=== PATIENT | female | born 1950 | race Caucasian/White ===

== ENCOUNTER 2025-02-06 12:44 | Outpatient (OUT) | payer MEDICARE, SELFPAY ==
--- NOTE | 2025-02-06 12:53 | ECG_ITS ---
[facility] Test Date: 2025-02-06 Pat Name: NOLVIA ASH Department: Room: - Gender: Female Equity Director: : 1950 Requested By: AYO NUNEZ Order Number: [id number] Reading MD: INO VERDE M.D. Measurements Intervals [place] Rate: 68 P: IA: QRS: 9 QRSD: 81 T: 36 QT: 403 QTc: 430 Interpretive Statements ATRIAL FIBRILLATION ABNORMAL ECG No previous ECG available for comparison Electronically Signed On 02-06-2025 17:57:03 EDT by INO VERDE M.D.
--- NOTE | 2025-02-06 12:53 | XR_ITS ---
The [address] [address] Patient Name: NOLVIA ASH MRN: [id number] date: 1950 Sex: F Assigned Patient Location: [facility] Current Patient Location: [facility] Accession/Order Number: [id number] Exam Date: 02/06/2025 14:33 Report Date: 02/06/2025 14:34 At the request of: AYO NUNEZ MD Procedure: XR chest 2V XR chest 2V 02/06/2025 1:59 PM SIGNS AND SYMPTOMS: ^Preop exam ^N PROTOCOL: Frontal and lateral radiographs of the chest COMPARISON: None FINDINGS: The trachea is midline. The heart and mediastinal structures are within normal limits. There is a 1 cm density in the right lung base which is of uncertain etiology. Statistically this is most likely a calcified granuloma. Follow-up dedicated CT of the chest is recommended however. Degenerative changes are noted in the shoulders. Degenerative changes are noted in the thoracic spine with a slight dextro convex curvature. XR/XR chest 2V IMPRESSION: There is a 1 cm density in the right lung base which is of uncertain etiology. Statistically this is most likely a calcified granuloma. Follow-up dedicated CT of the chest is recommended however. Impression dictated by: Pacheco Madera M.D. 02/06/2025 2:34 PM Dictation Location: [place] [address] Electronically authenticated by: [id number] Y Date: 02/06/2025 14:34
--- NOTE | 2025-02-06 13:54 | PM.PRESUREVA ---
History of Present Illness History of Present Illness Chief complaint: bladder tumor Narrative: Mrs. Alyssa Patel presents to presurgical testing for scheduled cystoscopy and transurethral resection of bladder tumor\lesion. Mrs. Bronson reports that she had a recent cystoscopy due to hematuria and that Dr. Newell would like to look into her bladder with a light to remove the bladder tumor\lesion. She is scheduled for cystoscopy with TURBT with Dr. Newell on 02/15/2025 Review of Systems ROS Narrative REVIEW OF SYSTEMS: Negative except as stated in HPI, ten or more systems reviewed. Constitutional: No fever, chills, weakness ENT: No sore throat or epistaxis Cardiovascular: No edema, chest pain, palpitations, or activity intolerance she reports intermittent fluttering secondary to atrial fibrillation Respiratory: No shortness of breath, cough, or wheezing Musculoskeletal: Reports intermittent joint pain related to osteoarthritis denies swelling to joints Gastrointestinal: No abdominal pain, constipation, diarrhea, or vomiting Genitourinary: No dysuria she reports some hematuria\dark urine Neurological: No numbness, tingling, weakness, or headache Psychiatric: No mood changes PFSH PFSH Medical History (Updated 02/06/25 @ 13:51 by Kemi Gloria) Osteoarthritis ?M19.90 - Unspecified osteoarthritis, unspecified site (ICD-10) IBS (irritable bowel syndrome) ?K58.9 - Irritable bowel syndrome, unspecified (ICD-10) Hernia, umbilical ?K42.9 - Umbilical hernia without obstruction or gangrene (ICD-10) Uterine cancer ?C55 - Malignant neoplasm of uterus, part unspecified (ICD-10) Hyperlipidemia ?E78.5 - Hyperlipidemia, unspecified (ICD-10) Gross hematuria ?R31.0 - Gross hematuria (ICD-10) Diabetes ?E11.9 - Type 2 diabetes mellitus without complications (ICD-10) Depression ?F32.A - Depression, unspecified (ICD-10) Asthma ?J45.909 - Unspecified asthma, uncomplicated (ICD-10) Atrial fibrillation ?I48.91 - Unspecified atrial fibrillation (ICD-10) Surgical History (Updated 02/06/25 @ 13:31 by Kemi Gloria) History of colonoscopy ?Z98.890 - Other specified postprocedural states (ICD-10) History of tubal ligation ?Z98.51 - Tubal ligation status (ICD-10) History of partial hysterectomy ?Z90.711 - Acquired absence of uterus with remaining cervical stump (ICD-10) H/O partial thyroidectomy ?E89.0 - Postprocedural hypothyroidism (ICD-10) Family History (Updated 02/06/25 @ 13:23 by Kemi Gloria) Other Family history of DVT Family history of MS (multiple sclerosis) Family history of breast cancer Family history of colon cancer Family history of coronary artery disease Family history of diabetes mellitus Family history of heart disease Family history of hypertension Family history of myocardial infarction Family history of pulmonary embolism Family history of stroke Family history of thyroid cancer Family history of uterine cancer Social History (Updated 02/06/25 @ 13:19 by Kemi Gloria) Within the past year, how often did you have a drink containing alcohol: never Score interpretation: A score less than 3 is consistent with normal alcohol consumption. Smoking status: Never smoker Non-prescribed substance use: denies use Previous occupational history: retired Highest level of school completed/degree received: high school graduate Meds Home Medications and Allergies Home Medications ?Medication ?Instructions ?Recorded ?Confirmed ?Type albuterol sulfate 2.5 mg/3 mL 2.5 mg inhalation TID-QID PRN 02/06/25 02/06/25 History (0.083 %) solution for nebulization shortness of breath or wheezing albuterol sulfate 90 mcg/actuation 2 inh inhalation Q6H PRN shortness 02/06/25 02/06/25 History aerosol inhaler of breath or wheezing alendronate 70 mg tablet (Fosamax) 70 mg PO QWEEK 02/06/25 02/06/25 History apixaban 5 mg tablet (Eliquis) 5 mg PO BID 02/06/25 02/06/25 History atorvastatin 40 mg tablet (Lipitor) 40 mg PO BEDTIME 02/06/25 02/06/25 History calcium citrate 600 mg PO BEDTIME 02/06/25 02/06/25 History cholecalciferol (vitamin D3) 125 2,000 unit PO QDAY 02/06/25 02/06/25 History mcg (5,000 unit) tablet (Vitamin D3) cyanocobalamin (vitamin B-12) 250 250 mcg PO .evening 02/06/25 02/06/25 History mcg tablet (Vitamin B-12) fluoxetine 20 mg capsule (Prozac) 20 mg PO DAILY 02/06/25 02/06/25 History losartan 100 mg tablet (Cozaar) 100 mg PO DAILY 02/06/25 02/06/25 History magnesium 200 mg tablet 250 mg PO BEDTIME 02/06/25 02/06/25 History metformin 500 mg tablet 1,000 mg PO BID 02/06/25 02/06/25 History metoprolol succinate 25 mg 25 mg PO DAILY 02/06/25 02/06/25 History tablet,extended release 24 hr (Toprol XL) multivitamin (Daily Multi-Vitamin 1 tab PO DAILY 02/06/25 02/06/25 History tablet) simethicone 125 mg capsule 125 mg PO BID PRN abdominal 02/06/25 02/06/25 History distention sulfamethoxazole 800 1 tab PO BID 02/06/25 02/06/25 History mg-trimethoprim 160 mg tablet (Bactrim DS) zinc gluconate 50 mg tablet 50 mg PO .COMPLEX 02/06/25 02/06/25 History Allergies Allergy/AdvReac Type Severity Reaction Status Date / Time No Known Drug Allergies Allergy Verified 02/06/25 13:18 Exam Narrative Exam Narrative: Constitutional: Awake, alert, comfortable, well-appearing, nontoxic, interactive, vital signs as charted Head: Normocephalic, atraumatic Eyes: Conjunctiva and lids normal to inspection, pupils normal ENT: Tympanic membranes pearly ruelas, nonerythematous, noninjected, naris patent, posterior oropharynx clear, oral mucosa moist, edentulism Neck: Supple, normal appearance, normal range of motion, no meningeal signs, no lymphadenopathy Respiratory: No respiratory distress, breath sounds clear Cardiovascular: Heart rate at 70 bpm, irregularly irregular consistent with Atrial fib without murmur Abdomen: Nontender, normal bowel sounds, soft, no CVA tenderness Musculoskeletal: Antalgic gait ambulating with cane, no swelling or edema Skin: No rashes or induration, no lesions, only visible skin inspected Neuro: No neurological deficits, normal sensation Psychiatric: Oriented ?3, normal affect Assessment and Plan Assessment and Plan (1) Hematuria: (2) Bladder tumor: Plan She is scheduled for cystoscopy and TUBT with Dr. Newell on February 15, 2025
[2025-02-06 14:09] LABS: BUN Creatinine Ratio 18.5; Calcium 9.4 mg/dL (8.5-10.1); Carbon Dioxide 31.2 mmol/L (21.0-32.0); Chloride 104 mmol/L (98-107); Estimated GFR (African America 54 (>=60 mL/min/1.73m^2); Estimated GFR (Non-African Ame 44 (>=60 mL/min/1.73m^2); Glucose 119 mg/dL (74-106); Potassium 4.2 mmol/L (3.5-5.1); Sodium 143 mmol/L (136-145)
[2025-02-06 14:17] LABS: Basophils Percent Auto 0.6 % (0.2-2.0); Eosinophils Absolute Auto 0.1 10^3/uL (0.0-0.7); Hematocrit 39.2 % (36.0-48.0); Hemoglobin 11.9 g/dL (12.0-16.0); Immature Granulocytes Abs Auto 0.02 10^3/uL (0.00-0.03); Immature Granulocytes Pct Auto 0.3 % (0.0-0.5); Lymphocytes Absolute Auto 1.1 10^3/uL (1.2-3.8); Mean Corpuscular HGB Conc 30.4 g/dL (29.9-35.2); Mean Corpuscular Hemoglobin 26.7 pg (26.7-34.0); Mean Corpuscular Volume 88.1 fL (81.0-99.0); Mean Platelet Volume 11.3 fL (9.5-13.5); Monocytes Absolute Auto 0.5 10^3/uL (0.3-0.8); Monocytes Percent Auto 6.7 % (1.7-12.0); Neutrophils Absolute Auto 5.5 10^3/uL (1.4-6.5); Neutrophils Percent Auto 76.4 % (43.0-75.0); Platelet Count 246 10^3/uL (150-450); Red Blood Count 4.45 10^6/uL (4.20-5.40); Red Cell Distribution Width 13.8 % (11.0-15.0); White Blood Count 7.2 10^3/uL (4.0-11.0)
[2025-02-06 14:47] LABS: INR 1.11; Partial Thromboplastin Time 27.3 sec (22.3-36.2); Prothrombin Time 11.6 sec (9.0-11.6)
== END 2025-02-06 12:45 | disposition home or self-care (01) ==
LOC: PST 12:49
PROVIDERS: PCP Student in an Organized Health Care Education/Training Program; Visit Provider Urology
DX: Z01.810 Encounter for preprocedural cardiovascular examination (principal); Z01.812 Encounter for preprocedural laboratory examination; Z01.818 Encounter for other preprocedural examination; D49.4 Neoplasm of unspecified behavior of bladder; R31.9 Hematuria, unspecified
CPT/HCPCS: 71046; 80048; 85025; 85610; 85730; 93005; G0463

== ENCOUNTER 2025-02-15 08:29 | Day surgery (SDC) | payer MEDICARE, SELFPAY ==
[2025-02-06 13:19] VITALS: BP 121/89; PULSE 78; TEMP 36.2; O2SAT 96; BMI 37.9
[2025-02-15] VITALS (8 sets, daily range): BP systolic 115–134; BP diastolic 68–100; PULSE 66–94; TEMP 36.1–36.4; O2SAT 95–100; BMI 37.9
--- OUTSIDE RECORDS SUMMARY | 2025-02-15 08:32 | XMS_ITS | Encounter Summary ---
Author Organization [facility] Address [address] [place] [address] Phone Care Team Providers Care Founder And Chief Technical Officer Name Role Phone Nita Cloud DO Primary Care Provider Nita Cloud DO Primary Care Provider Encounter Details Date Type Department Care Team (Late st Contact Info) Description 11/01/2023 Scanned Document [facility] [address] [place] [id number] Scanning, Generic Provider Social History Tobacco Use Types Packs/Day Years Used Date Smoking Tobacco: Never Smokeless Tobacco: Never Alcohol Use Standard Drinks/Week Comments Never 0 (1 standard drink = 0.6 oz pur e alcohol) Comments Unknown Sex and Gender Information Value Date Recorded Sex Assigned at Not on file Legal Sex Female 2:03 PM EST Gender Identity Not on file Sexual Orientation Not on file COVID-19 Exposure Response Date Recorded In the last 10 days, have yo u been in contact with someone who was confirmed or suspected to have Coronavirus/COVID-19? No / Unsure 10/07/2023 9:46 AM EST documented as of this encounter Plan of Treatment Upcoming Encounters Date Type Department Care Team (Late st Contact Info) Description 04/17/2025 10:10 AM EDT Office Visit [place] [address] [place] [address] Efrem Novoa MD [address] [facility] [address] [place] [address] documented as of this encounter Visit Diagnoses Not on filedocumented in this encounter Additional Health Concerns Assessment Noted Time A fall risk assessment has been complete d for the patient 10/07/2023 10:16 AM EST documented as of this encounter Care Teams Founder And Chief Technical Officer Relationship Specialty Start Date End Date Nita Cloud DO PCP - General 09/27/19 07/10/24 Nita Cloud DO [address] [place] [id number] PCP - General Family Medicine 07/11/24 documented as of this encounter
--- OUTSIDE RECORDS SUMMARY | 2025-02-15 08:32 | XMS_ITS | Clinical Summary ---
Author Organization [facility] Address [address] [place] [address] Phone Care Team Providers Care Pharmacy Technician Assistant Name Role Phone Nita Cloud DO Primary Care Provider Allergies Active Allergy Reactions Criticality Noted Date Comments Hydrochlorothiazide Other 09/22/2023 Medications albuterol 2.5 mg /3 mL (0.083 %) nebulizer solution Inhale. 1 Active albuterol 90 mcg/actuation inhaler Inhale. 2 Active alendronate (Fosamax) 70 mg tablet Take 1 tablet (70 mg) by mouth every 7 days. 2 Active cholecalciferol (Vitamin D-3) 5,000 Units tablet Take 1 tablet (5,000 Units) by mouth once daily. Active fish oil concentrate ([place]-3) 120-180 mg capsule Take 1 capsule (1 g) by mouth once daily. Active FLUoxetine (PROzac) 20 mg capsule Take 1 capsule (20 mg) by mouth once daily. 2 Active fluticasone (Flonase) 50 mcg/actuation nasal spray Administer 2 sprays into each nostril once daily. 2 Active losartan (Cozaar) 100 mg tablet Take 1 tablet (100 mg) by mouth once daily. 1 Active metFORMIN XR 500 mg 24 hr tablet Take 4 tablets (2,000 mg) by mouth once daily in the evening. Take with meals. 1 Active multivitamin tablet Take 1 tablet by mouth once daily. Active magnesium 250 mg tablet Take 1 tablet (250 mg) by mouth once daily. Active atorvastatin (Lipitor) 40 mg tabletIndications: Mixed hyperlipidemia Take 1 tablet (40 mg) by mouth once daily. 90 tablet 3 4 025 Active metoprolol succinate XL (Toprol-XL) 25 mg 24 hr tabletIndications: Permanent atrial fibrillation (Multi),Essential hypertension, benign Take 1 tablet (25 mg) by mouth once daily. 90 tablet 3 4 025 Active apixaban (Eliquis) 5 mg tabletIndications: Permanent atrial fibrillation (Multi) Take 1 tablet (5 mg) by mouth 2 times a day. 180 tablet 3 4 025 Active Active Problems Problem Noted Date Diagnosed Date Anticoagulated 07/11/2024 Never smoked tobacco 07/11/2024 Permanent atrial fibrillation (Multi) 10/07/2023 BMI 40.0-44.9, adult (Multi) 10/07/2023 Asthma 09/22/2023 Diabetes mellitus (Multi) 09/22/2023 Essential hypertension, benign 09/22/2023 Hyperlipidemia 09/22/2023 Shortness of breath 09/22/2023 Resolved Problems Problem Noted Date Diagnosed Date Resolved Date Paroxysmal atrial fibrillation (Multi) 09/22/2023 10/07/2023 Encounters Date Type Department Care Team Description 02/01/[address] [address] Jacy Floyd LPN Pre-op Clearance; med hold from Last 3 Months Family History Medical History Relation Name Comments No Known Problems Brother Diabetes Father cabg Father Diabetes Mother Hypertension Mother No Known Problems Sister Relation Name Status Comments Brother Father Mother Sister Social History Tobacco Use Types Packs/Day Years Used Date Smoking Tobacco: Never Smokeless Tobacco: Never Tobacco Cessation:Counseling Given: Not Answered Alcohol Use Standard Drinks/Week Comments Never 0 (1 standard drink = 0.6 oz pur e alcohol) Comments Unknown Sex and Gender Information Value Date Recorded Sex Assigned at Not on file Legal Sex Female 2:03 PM EST Gender Identity Not on file Sexual Orientation Not on file Last Filed Vital Signs Vital Sign Reading Time Taken Comments Blood Pressure 122/84 07/11/2024 11:21 AM EDT Pulse 64 07/11/2024 11:21 AM EDT Temperature - - Respiratory Rate - - Oxygen Saturation - - Inhaled Oxygen Concentration - - Weight 128 kg (282 lb) 07/11/2024 11:21 AM EDT Height 175.3 cm (5' 9 ) 07/11/2024 11:21 AM EDT Body Mass Index 41.64 07/11/2024 11:21 AM EDT Plan of Treatment Upcoming Encounters Date Type Department Care Team (Late st Contact Info) Description 04/17/2025 10:10 AM EDT Office Visit [place] [address] [place] [address] Efrem Novoa MD [address] [facility] [address] [place] [address] Health Maintenance Due Date Last Done Comments Bone Density Scan 1950 CT Colonography 1950 Diabetes: Hemoglobin A1C 1950 Diabetes: Urine Protein Screening 1950 FIT-DNA (Cologuard) 1950 FIT 1950 Lipid Panel 1950 Medicare Annual Wellness Visit (AWV) 1950 Sigmoidoscopy 1950 Diabetes: Retinopathy Screening 1959 Hepatitis C Screening 1967 DTaP/Tdap/Td Vaccines (1 - Tdap) 1971 Zoster Vaccines (1 of 2) 1999 RSV High Risk: (Elderly (60+) or Population) (1 - 1-dose 75+ series) 2024 COVID-19 Vaccine (4 - season) 2024 11/21/2021, 05/20/2021, 04/21/2021 Pneumococcal Vaccine (3 of 3 - PCV20 or PCV21) 08/04/2024 08/04/2019, 07/22/2006 Influenza Vaccine (Season Ended) 2025 06/23/2023, 06/19/2021, 09/17/2020, Additional history exists Colonoscopy 12/15/2032 12/15/2022 Colorectal Cancer Screening 12/15/2032 HIB Vaccines Aged Out No longer eligi ble based on patient's age to complete this topic HPV Vaccines Aged Out No longer eligi ble based on patient's age to complete this topic Hepatitis A Vaccines Aged Out No long er eligible based on patient's age to complete this topic Hepatitis B Vaccines Aged Out No long er eligible based on patient's age to complete this topic IPV Vaccines Aged Out No longer eligi ble based on patient's age to complete this topic Meningococcal Vaccine Aged Out No hadley bishnu eligible based on patient's age to complete this topic Rotavirus Vaccines Aged Out No longer eligible based on patient's age to complete this topic Insurance [employer] MEDICARE ADVANTAGE MEDICAID [facility], [facility] MEDICARE ADVANTAGE Care Teams Pharmacy Technician Assistant Relationship Specialty Start Date End Date Nita Cloud DO [address] [place] [address] PCP - General Family Medicine 07/11/24
--- OUTSIDE RECORDS SUMMARY | 2025-02-15 08:32 | XMS_ITS | Encounter Summary ---
Author Organization [facility] Address [address] [place] [address] Phone Care Team Providers Care Marketing And Development Coordinator Name Role Phone Nita Cloud Abhay PENNINGTON Primary Care Provider Reason for Visit * Reason Onset Date Comments Pre-op Clearance 02/01/2025 med hold 02/01/2025 Encounter Details Date Type Department Care Team (Late st Contact Info) Description 02/01/2025 Telephone [place] [id number] [address] Jacy Floyd LPN Pre-op Clearance; med hold Social History Tobacco Use Types Packs/Day Years Used Date Smoking Tobacco: Never Smokeless Tobacco: Never Alcohol Use Standard Drinks/Week Comments Never 0 (1 standard drink = 0.6 oz pur e alcohol) Comments Unknown Sex and Gender Information Value Date Recorded Sex Assigned at Not on file Legal Sex Female 2:03 PM EST Gender Identity Not on file Sexual Orientation Not on file documented as of this encounter Miscellaneous Notes * Telephone Encounter - Allison Santos LPN - 02/01/2025 3:23 PM EDT Will fax note to listed number. * Telephone Encounter - Jacy Floyd LPN - 02/01/2025 10:50 AM EDT POC request and ok to hold eliquis 3 days prior Chloé with Dr. Govea's office phoned in patient to have Cysto-turbt, general anesthesia. Scheduled 02/15/2025 at the [facility] [phone] documented in this encounter Plan of Treatment Upcoming Encounters Date Type Department Care Team (Late st Contact Info) Description 04/17/2025 10:10 AM EDT Office Visit [address] [place] [address] Efrem Novoa MD [address] [facility] [address], [address] [place] [address] documented as of this encounter Visit Diagnoses Not on filedocumented in this encounter Additional Health Concerns Assessment Noted Time A fall risk assessment has been complete d for the patient 07/11/2024 11:21 AM EDT documented as of this encounter Care Teams Marketing And Development Coordinator Relationship Specialty Start Date End Date Nita Cloud DO [address] [place] [address] PCP - General Family Medicine 07/11/24 documented as of this encounter
--- OUTSIDE RECORDS SUMMARY | 2025-02-15 08:32 | XMS_ITS | Encounter Summary ---
Author Organization [facility] Address [address] [place] [address] Phone Care Team Providers Care Counter Pocket Sewer Name Role Phone Nita Cloud DO Primary Care Provider Nita Cloud DO Primary Care Provider Encounter Details Date Type Department Care Team (Late st Contact Info) Description 06/02/2022 Orders Only [facility] [address] [place] [address] Conversion, Onbase Social History Tobacco Use Types Packs/Day Years Used Date Smoking Tobacco: Never Assessed Comments Unknown Sex and Gender Information Value Date Recorded Sex Assigned at Not on file Legal Sex Female 2:03 PM EST Gender Identity Not on file Sexual Orientation Not on file documented as of this encounter Plan of Treatment Upcoming Encounters Date Type Department Care Team (Late st Contact Info) Description 04/17/2025 10:10 AM EDT Office Visit [place] [address] [place] [address] Efrem Novoa MD [address] [facility] [address], [address] [place] [address] Scheduled Orders Name Type Priority Associated Diagnoses Orde r Schedule OUTSIDE LAB SCAN Lab Ordered: 06/02/2022 documented as of this encounter Visit Diagnoses Not on filedocumented in this encounter Care Teams Counter Pocket Sewer Relationship Specialty Start Date End Date Nita Cloud DO PCP - General 09/27/19 07/10/24 Nita Cloud DO [address] [place] [address] PCP - General Family Medicine 07/11/24 documented as of this encounter
[2025-02-15 09:11] LABS: Glucometer 134 mg/dL (74-106)
[2025-02-15] MEDS: LACTATED RINGER'S SOLUTION 1,000 ML 50 ML IV ×2 (09:29→12:22)
[2025-02-15] MEDS: CEFAZOLIN SODIUM 2 GM/50 ML D5W PREMIX IV (11:11)
--- NOTE | 2025-02-15 11:49 | PM.URSON ---
Urology Surgery Operative Note Operative Note Procedure Date: 02/15/25 Time Out Performed: yes Pre-op Diagnosis: Gross hematuria and bladder lesions Post-op Diagnosis: same as pre-op Procedures performed: 1. Cystoscopy. 2. Transurethral resection of bladder lesions approximately 3 cm Anesthesia: BRANDEE Primary Surgeon: Gavin Newell Complications: None Estimated blood loss (mL): 2 Findings: Flat ulcerative erythematous bladder lesions approximately 3 to 4 cm on the back left wall of the bladder Specimens: Bladder lesions Drains: 20 Pakistani Porter catheter to the bladder Indications for Procedures: This lady had painless gross hematuria. Cystoscopy revealed a 3 to 4 cm flat erythematous ulcerative lesion that was minimally bleeding. She now presents for cystoscopy and transurethral resection of these lesions. She has signed an informed consent after risks were explained. Detailed description of Procedure: The patient was brought to the operating room and placed on the operating room table in the supine position. SCDs were placed on the lower extremities and turned on and functioning during the entire case. Timeout was done by all parties in the room. We all agreed upon the patient's identification and the planned procedures for this patient. Genn. anesthesia was then administered. The patient was then repositioned into the modified dorsal lithotomy position. All pressure points were satisfactorily padded. Genitalia were sterilely prepped and draped in usual fashion. I started by passing a 26 Pakistani Olympus resectoscope with a standard bipolar loop electrode per urethra and into the bladder. Careful panendoscopy revealed that the flat red ulcerative area that was bleeding in the recent past during the office cystoscopy at this time was not bleeding. The ulcerative component of this area seems to have resolved. Now it is just a red flat area with possible early bladder tumor components within it. After verifying that she was fully paralyzed I then uniformly and deeply resected this entire red area. The resection bed was coagulated along with a 1 cm rim around it. The Ilich evacuator was used to get all of the bladder pieces out and these were sent for permanent sections labeled bladder lesions. Upon completion, there was no evidence of bleeding and there were no lesions or tumors noted within the bladder. The scope was then removed. A 20 Pakistani Porter was placed in the bladder and 10 cc of fluid was placed in the balloon. It drained clearly. The anesthetic was then reversed. She was then transferred to a [facility] bed and wheeled to PACU in stable condition. Urinary Catheter Management Urinary Catheter Management Urethral: Cath placed during this visit: no
--- NOTE | 2025-02-15 13:36 | PC.NURSE ---
Camejo leg bag switched to 2000cc camejo bag; draining clear yellow and catheter secure applied
== END 2025-02-15 13:10 | disposition home or self-care (01) ==
PROVIDERS: PCP Student in an Organized Health Care Education/Training Program; Visit Provider Urology
PROC: (CPT 52235; principal; 2025-02-15 09:50)
DX: N30.11 Interstitial cystitis (chronic) with hematuria (principal); N32.9 Bladder disorder, unspecified; I48.91 Unspecified atrial fibrillation; J45.909 Unspecified asthma, uncomplicated; E11.9 Type 2 diabetes mellitus without complications; E78.5 Hyperlipidemia, unspecified; I10 Essential (primary) hypertension; Z85.42 Personal history of malignant neoplasm of other parts of uterus; Z98.51 Tubal ligation status; Z90.711 Acquired absence of uterus with remaining cervical stump; Z79.84 Long term (current) use of oral hypoglycemic drugs; Z79.01 Long term (current) use of anticoagulants; K21.9 Gastro-esophageal reflux disease without esophagitis
CPT/HCPCS: 52235; 36415; 82948; 88307; J0690; J1100; J2371; J2405; J2704; J3010